=== PATIENT | female | born 1950 | race Caucasian/White ===

== ENCOUNTER 2019-11-14 12:36 | Outpatient (CLI) | payer MEDICARE ==
--- NOTE | 2019-11-14 13:41 | MRI ---
MRI of thebrain: 11/14/2019 COMPARISON:None available HISTORY:Unsteadiness on feet TECHNIQUE: Multiplanar multisequence MR imaging of thebrain without contrast Findings:The diffusion weighted imaging demonstrates no evidence for acute infarction. The axial grad ient echo imaging demonstrates no evidence for intracranial hemorrhage. Arterial flow voids at the axial level of the skull base appear grossly unremarkable on the T2-weight ed imaging. Imaged paranasal sinuses/mastoid air cells are well aerated. Regional bone marrow signal intensity appears normal. IMPRESSION:No acute findings.
== END 2019-11-14 12:37 | disposition home or self-care (01) ==
LOC: MRI 12:36
PROVIDERS: ATTEND Psychiatry & Neurology Neurology
DX: R26.81 Unsteadiness on feet (principal)
CPT/HCPCS: 70551